=== PATIENT | female | born 2000 | race Caucasian/White ===

== ENCOUNTER 2019-02-20 16:03 | Outpatient (CLI) | payer OTHER ==
[2019-02-20 17:27] LABS: ADD UMIC YES; UR ASCORBIC ACID 40 mg/dL (NEGATIVE); UR BACTERIA FEW /HPF (NONE SEEN); UR BILIRUBIN (Dip) NEGATIVE (NEGATIVE); UR BLOOD (Dip) NEGATIVE (NEGATIVE); UR CLARITY SLIGHTLY CLOUDY (CLEAR); UR COLOR YELLOW (YELLOW); UR GLUCOSE (Dip) NEGATIVE (NEGATIVE); UR KETONES (Dip) NEGATIVE (NEGATIVE); UR LEUKOCYTE ESTERASE (Dip) 3+ Leu/ul (NEGATIVE); UR NITRITE (Dip) NEGATIVE (NEGATIVE); UR RBC 2 /HPF (0-5); UR SPECIFIC GRAVITY (Dip) 1.014 (1.003-1.030); UR SQUAMOUS EPITHELIAL CELL MODERATE /HPF (FEW); UR TOTAL PROTEIN (Dip) NEGATIVE (NEGATIVE); UR UROBILINOGEN (Dip) NEGATIVE (NEGATIVE); UR WBC 30 /HPF (0-5)
== END 2019-02-20 18:15 | disposition home or self-care (01) ==
LOC: OBT 16:03 → L-D 16:07 → OBT 18:15
DX: O23.42 Unspecified infection of urinary tract in pregnancy, second trimester (principal); O62.9 Abnormality of forces of labor, unspecified; Z3A.26 26 weeks gestation of pregnancy
CPT/HCPCS: 76817; 81001

== ENCOUNTER 2019-05-23 18:37 | Inpatient (IN) | payer OTHER ==
[2019-05-23] MEDS ORDERED: LIDOCAINE 1% (MPF) 30 ML INJ INJ (21:30)
[2019-05-23] MEDS ORDERED: IBUPROFEN 600 MG TAB PO (21:30)
[2019-05-23] MEDS ORDERED: MISOPROSTOL 200 MCG TAB PR (21:30)
[2019-05-23] MEDS ORDERED: CARBOPROST 250 MCG INJ IM (21:30)
[2019-05-23] MEDS ORDERED: METHYLERGONOVINE 0.2 MG INJ IM (21:30)
[2019-05-23] MEDS ORDERED: BUTORPHANOL 2 MG INJ IV (21:30)
[2019-05-23] MEDS ORDERED: OXYTOCIN 30 UNITS/LR 500 ML IV ×2 (21:30)
[2019-05-23 21:43] LABS: ADD MAN DIFF? NO
[2019-05-23] MEDS: LACTATED RINGER'S 1,000 ML IV (21:43)
[2019-05-23 21:50] LABS: ABNORMAL IP MESSAGE 1; BASOPHIL # 0.1 10^3/ul (0.0-0.1); BASOPHILS % 0.6 % (0.0-2.0); EOSINOPHILS % 0.3 % (0.0-7.0); HEMATOCRIT 25.6 % (37.0-47.0); LYMPHOCYTES # 2.6 10^3/ul (0.8-2.9); LYMPHOCYTES % 26.4 % (15.0-51.0); MEAN CORPUSCULAR HEMOGLOBIN 16.3 pg (29.0-33.0); MEAN CORPUSCULAR HGB CONC 27.3 g/dl (32.0-37.0); MEAN CORPUSCULAR VOLUME 59.7 fl (82.0-101.0); MONOCYTE # 0.6 10^3/ul (0.3-0.9); MONOCYTES % 6.1 % (0.0-11.0); NEUTROPHIL # 6.4 10^3/ul (1.6-7.5); NEUTROPHILS % 66.1 % (39.0-77.0); NUCLEATED RED BLOOD CELLS% 0.3 /100WBC (0.0-0.0); PLATELET COUNT 154 10^3/UL (140-415); RED BLOOD COUNT 4.29 10^6/ul (4.20-5.40); RED CELL DISTRIBUTION WIDTH 21.2 % (11.5-14.5)
[2019-05-23 21:50] LABS: WHITE BLOOD COUNT 9.7 10^3/ul (4.8-10.8)
[2019-05-23 21:55] LABS: POSITIVE DIFF @See below
[2019-05-23 22:02] LABS: AMPHETAMINE/METHAMPHETAMINE Negative (NEGATIVE); BARBITURATES Negative (NEGATIVE); BENZODIAZEPINES Negative (NEGATIVE); CANNABINOIDS Negative (NEGATIVE); COCAINE Negative (NEGATIVE); OPIATES Negative (NEGATIVE)
[2019-05-23 22:09] LABS: INR 0.92; PROTIME 12.5 Sec (11.9-14.9)
[2019-05-23 22:10] LABS: PARTIAL THROMBOPLASTIN TIME 26.9 Sec (23.0-35.0)
[2019-05-23 22:37] LABS: HEPATITIS B SURFACE ANTIGEN NEGATIVE (NEGATIVE)
[2019-05-24] MEDS: ACETAMINOPHEN 325 MG TAB PO (00:50)
[2019-05-24] MEDS: LACTATED RINGER'S 1,000 ML IV ×2 (04:14→12:29)
[2019-05-24] MEDS: OXYTOCIN 30 UNITS/LR 500 ML IV ×2 (08:53→15:17)
[2019-05-24] MEDS: BUTORPHANOL 2 MG INJ IV (10:51)
[2019-05-24] MEDS ORDERED: FENTAnyl 2MCG/ML-ROPIV 0.2% 100 ML (12:33)
[2019-05-24] MEDS ORDERED: DIPHENHYDRAMINE 50 MG INJ IV (13:00)
[2019-05-24] MEDS ORDERED: FENTAnyl 2MCG/ML-ROPIV 0.2% 100 ML BAG EPI (13:00)
[2019-05-24] MEDS ORDERED: ONDANSETRON 4 MG INJ IV (13:00)
[2019-05-24] MEDS ORDERED: NALOXONE (0.4 MG/ML) INJ IV (13:00)
[2019-05-24] MEDS ORDERED: LACTATED RINGER'S 1,000 ML IV* (15:35)
[2019-05-24] MEDS ORDERED: OXYTOCIN 30 UNITS/LR 500 ML IV ×2 (15:35→16:00)
[2019-05-24] MEDS ORDERED: MISOPROSTOL 200 MCG TAB PR (16:00)
[2019-05-24] MEDS ORDERED: ACETAMINOPHEN 325 MG TAB PO (16:00)
[2019-05-24] MEDS ORDERED: CARBOPROST 250 MCG INJ IM (16:00)
[2019-05-24] MEDS ORDERED: ZOLPIDEM 5 MG TAB PO (16:00)
[2019-05-24] MEDS ORDERED: METHYLERGONOVINE 0.2 MG INJ IM (16:00)
[2019-05-24] MEDS ORDERED: DIPHENHYDRAMINE 25 MG CAP PO (16:00)
[2019-05-24] MEDS: BENZOCAINE 20% 56 ML SPRAY TOP (16:48)
[2019-05-24] MEDS: SENNA/DOCUSATE NA (8.6MG/50MG) TAB PO (16:48)
[2019-05-24] MEDS: WITCH HAZEL/GLYCERIN PAD PR (16:48)
[2019-05-24] MEDS: LANOLIN HPA 1 PKT TOP (16:48)
[2019-05-24] MEDS: HYDROCODONE/APAP (5/325) TAB PO (16:49)
[2019-05-24 19:28] LABS: RAPID PLASMA REAGIN NONREACTIVE (NR)
[2019-05-24] MEDS: IBUPROFEN 800 MG TAB PO (20:25)
[2019-05-25] MEDS: IBUPROFEN 800 MG TAB PO ×4 (05:40→18:13)
[2019-05-25 07:26] LABS: WHITE BLOOD COUNT 9.9 10^3/ul (4.8-10.8)
[2019-05-25 07:26] LABS: ABNORMAL IP MESSAGE 1; HEMATOCRIT 23.1 % (37.0-47.0); MEAN CORPUSCULAR HEMOGLOBIN 16.4 pg (29.0-33.0); MEAN CORPUSCULAR HGB CONC 27.7 g/dl (32.0-37.0); MEAN CORPUSCULAR VOLUME 59.2 fl (82.0-101.0); NUCLEATED RED BLOOD CELLS% 0.3 /100WBC (0.0-0.0); PLATELET COUNT 120 10^3/UL (140-415); RED CELL DISTRIBUTION WIDTH 21.2 % (11.5-14.5)
[2019-05-25 07:35] LABS: HEMOGLOBIN 6.4 g/dl (12.0-16.0); POSITIVE DIFF @See below
[2019-05-25 07:36] LABS: ADD MAN DIFF? YES; PATH REVIEW? YES
[2019-05-25] MEDS: SENNA/DOCUSATE NA (8.6MG/50MG) TAB PO ×2 (08:52→19:40)
[2019-05-25] MEDS: HYDROCODONE/APAP (5/325) TAB PO ×2 (08:53→16:47)
[2019-05-25 09:35] LABS: IRON 33 ug/dl (35-150)
[2019-05-25 09:45] LABS: % IRON SATURATION 5 % SAT (22-52); TOTAL IRON BINDING CAPACITY 601 ug/dl (241-421)
[2019-05-25 10:13] LABS: FERRITIN 5.8 ng/ml (6.2-137.0)
[2019-05-25 10:33] LABS: ANISOCYTOSIS 2+ (0-0); BAND NEUTROPHILS % (M) 1 % (0-4); BASOPHILS % (M) 1 % (0-2); BURR CELLS 1+ (0-0); ERYTHROBLAST% (NRBC) (M) 1 % (0-0); GIANT THROMBO% (M) 3 % (0-0); HYPOCHROMASIA 2+ (0-0); LYMPHOCYTES #M 3.1 10^3/ul (0.8-2.9); LYMPHOCYTES % (M) 32 % (15-51); MICROCYTOSIS 2+ (0-0); PLATELET ESTIMATE DECREASED; POIKILOCYTOSIS 2+ (0-0); POLYCHROMASIA 1+ (0-0); SEG NEUT #M 6.5 10^3/ul (1.6-7.5); SEGMENTED NEUTROPHILS (M) % 66 % (39-77); SMUDGE%M 8 % (0-0)
[2019-05-25] MEDS: SOD FERRIC GLUC COMPLX 125 MG in SOD CHLORIDE 0.9% 100 ML IVPB (13:12)
[2019-05-25] MEDS: CYANOCOBALAMIN 1000 MCG INJ IM (15:56)
[2019-05-25] MEDS: LANOLIN HPA 1 PKT TOP (18:43)
[2019-05-25] MEDS: MAGNESIUM HYDROXIDE 30ML CUP PO (19:39)
[2019-05-25] MEDS: WITCH HAZEL/GLYCERIN PAD PR (19:40)
[2019-05-25] MEDS: BENZOCAINE 20% 56 ML SPRAY TOP (19:40)
[2019-05-26] MEDS: IBUPROFEN 800 MG TAB PO ×3 (00:39→12:20)
[2019-05-26] MEDS: HYDROCODONE/APAP (5/325) TAB PO ×2 (08:14→17:40)
[2019-05-26 08:16] LABS: HEMATOCRIT 23.9 % (37.0-47.0)
[2019-05-26 08:20] LABS: HEMOGLOBIN 6.6 g/dl (12.0-16.0)
[2019-05-26] MEDS: MEASLES,MUMPS,RUBELLA VACCINE INJ SC* (09:00)
[2019-05-26] MEDS: DIPHTH/TET/ACEL PERTUSS (ADULT) 0.5 ML VIAL IM* (09:00)
[2019-05-26] MEDS: VARICELLA VACCINE LIVE/PF 1,350 UNIT/0.5 ML ML SC* (09:00)
[2019-05-26 10:32] LABS: HEMATOCRIT 23.5 % (35.0-45.0); HEMOGLOBIN 6.8 g/dL (11.7-15.5); MCH 16.7 pg (27.0-33.0); MCV 57.7 fL (80.0-100.0); RDW 20.6 % (11.0-15.0); RED BLOOD CELL COUNT 4.07 Million/uL (3.80-5.10)
[2019-05-26] MEDS: SOD FERRIC GLUC COMPLX 125 MG in SOD CHLORIDE 0.9% 100 ML IVPB (13:32)
[2019-05-26] MEDS: MEDROXYPROGESTERONE 150 MG INJ SYG IM ×2 (15:30→16:14)
[2019-05-27 12:56] LABS: HEMOGLOBIN A 98.5 % (>96.0); HEMOGLOBIN A2 (QUANT) 1.5 % (1.8-3.5); HEMOGLOBIN F <1.0 % (<2.0)
== END 2019-05-26 16:30 | disposition home or self-care (01) | DRG 807 ==
LOC: OBT 18:37 → L-D 18:37 → OBT 20:06 → L-D 20:10 → PP1 05-24 15:22
PROC: 10E0XZZ Delivery of Products of Conception, External Approach (ICD-10-PCS; principal; 2019-05-24)
PROC: 0HQ9XZZ Repair Perineum Skin, External Approach (ICD-10-PCS; 2019-05-24)
DX: O70.9 Perineal laceration during delivery, unspecified (principal); Z37.0 Single live birth; O90.81 Anemia of the puerperium; D64.9 Anemia, unspecified; Z3A.39 39 weeks gestation of pregnancy
CPT/HCPCS: 62322; 76818; 80307; 82728; 83020; 83540; 85014; 85018; 85025; 85610; 85730; 86592; 86850; 86900; 86901; 87340; 90716